=== PATIENT | female | born 1960 ===

== ENCOUNTER 2016-08-22 09:22 | Day surgery (SDC) | payer OTHER ==
[2016-08-17 09:19] VITALS: BMI 24.7
[~2016-08-22 09:22] MED LIST: Bacitracin 50,000 UNIT in Sodium Chloride 0.9% Irrig 1,000 ML IR SCH
--- NOTE | 2016-08-22 10:30 | CP.SDSHP ---
Same Day Surgery H & P - History Proposed Procedure: Left distal radius fracture closed reduction vs ORIF Pre-Op Diagnosis: Left distal radius fx - Previous Medical/Surgical History Comments: patient cleared by cardio, per patient abnormal EKG so sent for further w/u, which was normal. Clearance on chart. Denies PMH/ Previous Surgical History: x 4 - Allergies Allergies: Allergies No Known Allergies Allergy (Verified 08/17/16 09:19) - Physical Exam Vital Signs: Vital Signs 08/22/16 09:40 Temperature 97.7 F Pulse Rate 63 Respiratory 20 Rate Blood Pressure 102/61 O2 Sat by Pulse 99 Oximetry Mental Status: Alert & Oriented x3 Heart: WNL Lungs: WNL GI: WNL - {Optional Preform as Required} Ortho: Other (LUE: splint intact, +cap refill < 2 seconds, sensation intact to rad/med/ulnar n) - Impression Impression: 56F RHD fell 2-3 weeks ago, distal radius fx for CR vs ORIF Pt. Evaluated Today:Candidate for Anesthesia & Procedure: Yes - Date & Time Date: 08/22/16 Time: 10:30 Short Stay Discharge - Short Stay Discharge Admitting Diagnosis/Reason for Visit: DISTAL RADIUS FRACTURE Disposition: HOME/ ROUTINE
[2016-08-22] MEDS ORDERED: Propofol 10 mg/ml Inj (20 ML) ONE (17:48)
[2016-08-22] MEDS ORDERED: Midazolam 2 MG/2 ML VIAL ONE (17:48)
[2016-08-22] MEDS ORDERED: Oxycodone/Acetaminophen 5/325 mg Tab PO PRN (18:05)
[2016-08-22] MEDS ORDERED: Bacitracin Ointment 30 GM TUBE ONE (18:50)
[2016-08-22] MEDS ORDERED: Lactated Ringer's 1,000 ML IV ONE ×4 (19:10)
[2016-08-22] MEDS: ceFAZolin IV 1 gm in Dextrose 50 ML IVPB ONE ×2 (19:15→19:27)
--- NOTE | 2016-08-22 19:15 | PCM.SURG1 ---
Surgeon's Initial Post Op Note - Surgeon's Notes Surgeon: Lata Ncqa Specialist: ALICIA Banerjee Type of Anesthesia: General LMA Anesthesia Administered By: Dr Deal Pre-Operative Diagnosis: Displaced / angulated distal radius fx Operative Findings: as above Post-Operative Diagnosis: as above Operation Performed: closed reduction/percutaneous pin fixation distal radius fx. applx short arm caspositioning of fluoro/interpreattion of video images Specimen/Specimens Removed: n/a Estimated Blood Loss: EBL {In ML}: 0 Blood Products Given: N/A Drains Used: No Drains Post-Op Condition: Good Date of Surgery/Procedure: 08/22/16 Time of Surgery/Procedure: 18:45 (time in room 6:20/anesthesia indcution tiome 6 :20)
[2016-08-22] MEDS ORDERED: HYDROmorphone 0.5 mg/0.5 ml ISec ONE (19:23)
[2016-08-22] MEDS: HYDROmorphone 0.5 mg/0.5 ml ISec IVP PRN ×3 (19:23→20:57)
[2016-08-22 21:44] VITALS: TEMP 97.8
[2016-08-22 22:37] VITALS: BP 109/60; PULSE 59; RESP 17; O2SAT 99
--- NOTE | 2016-08-23 10:10 | RAD ---
PROCEDURE: Left Wrist Radiographs. HISTORY: s/p wrist surgery, PT in PACU COMPARISON: None. FINDINGS: BONES: There are 3 pins through the distal left radius consistent with the recent internal fixation of distal radius fracture. Left wrist seen in cast. JOINTS: Normal. No dislocation. SOFT TISSUES: Normal. OTHER FINDINGS: None. IMPRESSION: Internal fixation of distal left radius fracture.
--- NOTE | 2016-08-23 11:39 | OP ---
PROCEDURE DATE: 08/22/2016 PREOPERATIVE DIAGNOSIS: Comminuted left distal radius fracture. POSTOPERATIVE DIAGNOSIS: Comminuted left distal radius fracture. PROCEDURES: 1. Closed reduction, percutaneous pin fixation, comminuted distal radius fracture. 2. Application short arm cast. SURGEON: Juan Guido MD SODA FLAKER: Sabina Osuna, Certified Registered Nursing Slubber Frame Changer. ANESTHESIA: General endotracheal anesthesia; ____. COMPLICATIONS: No complications. DRAINS: No drains. OPERATIVE INDICATION: The patient is a young-appearing woman who sustained a fall on an outstretched hand sustaining a fracture of the distal radius. Pros, cons, risks and benefits of surgical approac h were discussed. The possibility of mechanical failure, infection, thromboembolic disease, secondar y or tertiary surgery is discussed. Certainly, secondary surgery for hardware removal, the possibili ty of open reduction and plating is discussed, but that is a less likely option. Again, the possibil ity of wrist stiffness, mechanical failure of the pins, thromboembolic disease, infection, stiffness are discussed. BLOOD LOSS: Less than 5 mL. After having obtained informed consent in the presence of a culturally competent oracle programmer analyst, her son, the possibility of mechanical failure, infection, thromboembolic disease, secondary or tertiary surg lorenza is discussed. The patient can no longer stand the discomfort and wished the surgery to be accomp lished. OPERATIVE PROCEDURE: After having obtained informed consent in the above fashion, after having ident ified side, site and procedure and a critical pause/timeout, after the satisfactory induction of the anesthetic, the patient identified as [place] in the supine position with all bony prominen justin well padded, the left upper extremity is prepped and free draped in the usual fashion for upper e xtremity surgery. Finger traps are employed. After sterilely prepping and draping under the surgeon 's direction, the fluoroscope is positioned. Video images are generated and therapeutic decisions ar e made therefrom. The fracture is reduced with a counterweight across the brachium. The fracture is reduced and verification of position is offered on AP and lateral image intensification views. This having been accomplished, at a point in the area of the radial styloid with reduction of the fractur e, 3 interrupted K wires are placed across the fracture through both cortices. Position is found to be acceptable with ____ on the lateral view, which is acceptable and favorable. Verification of posi tion is offered on AP and lateral image intensification views. Closure of the punctures is with nylo n suture, interrupted nylon. Prashanth Reynoso compression dressing and short arm cast is applied. Verif ication of position is again offered on AP and lateral image intensification views and found to be ac ceptable. Juan Guido MD cc: [id number] TT: 08/23/2016 11:39:13 tn
--- NOTE | 2016-08-23 15:36 | RAD ---
PROCEDURE: Fluoroscopy up to 1 hr. HISTORY: LEFT WRIST FX COMPARISON: None TECHNIQUE: Standard protocol for this study/examination. FINDINGS: Total fluoroscopic time (continuous mode) utilized during the procedure: 16.0 seconds. IMPRESSION: Less than 1 hr fluoroscopic time utilized during performance of the procedure.
== END 2016-08-22 22:35 | disposition home or self-care (01) ==
LOC: C.SDS 09:22
PROVIDERS: ATTEND Orthopaedic Surgery
DX: S52.502A Unspecified fracture of the lower end of left radius, initial encounter for closed fracture (principal); W19.XXXA Unspecified fall, initial encounter; Y92.9 Unspecified place or not applicable
CPT/HCPCS: 25606; 73110; C1713; J0690; J1170; J2250; J2405; J2704; J3010; J7120